=== PATIENT | male | born 1935 | race Caucasian/White ===

== ENCOUNTER → 2018-09-06 | Outpatient (CLI) | payer MEDICARE, OTHER ==
[~2018-09-06] MED LIST: ASPI81CH PO; ATOR20 PO; CHOL10002 PO; DOCSEN PO; HYDR1TAB94 PO; Hair, Skin & N1 EACH PO; IBUP400 PO; OLME20 PO; TAMS.4ER PO; TIMO.25OPS BOTHEYES; TRIHYD253A PO; VIT1CAPS12 PO
== END | disposition home or self-care (01) ==
LOC: LAB SHORT 15:50 → LAB 15:50
DX: N18.3 Chronic kidney disease, stage 3 (moderate) (principal); D63.1 Anemia in chronic kidney disease; N25.81 Secondary hyperparathyroidism of renal origin; E55.9 Vitamin D deficiency, unspecified; E78.00 Pure hypercholesterolemia, unspecified; R76.9 Abnormal immunological finding in serum, unspecified; R94.5 Abnormal results of liver function studies; R94.6 Abnormal results of thyroid function studies
CPT/HCPCS: 86335

== ENCOUNTER → 2018-09-11 | Outpatient (CLI) | payer MEDICARE, OTHER ==
[2018-09-11 10:41] LABS: Protein, Urine Quantitative 9.3 mg/dL (0.0-11.9)
[2018-09-11 10:42] LABS: Creatinine Urine 57.5 mg/dL (27.00-270.00)
== END | disposition home or self-care (01) ==
LOC: LAB SHORT 07:30 → LAB 07:30 → LAB FUT 09-06 15:55
PROVIDERS: Internal Medicine Nephrology
DX: N18.3 Chronic kidney disease, stage 3 (moderate) (principal); D63.1 Anemia in chronic kidney disease; N25.81 Secondary hyperparathyroidism of renal origin; E55.9 Vitamin D deficiency, unspecified; E78.00 Pure hypercholesterolemia, unspecified; R76.9 Abnormal immunological finding in serum, unspecified; R94.5 Abnormal results of liver function studies; R94.6 Abnormal results of thyroid function studies
CPT/HCPCS: 81050; 82570; 84156

== ENCOUNTER → 2019-03-11 | Outpatient (CLI) | payer MEDICARE, OTHER | END | disposition home or self-care (01) | LOC: LAB SHORT 10:56 → PLD 10:56 | DX: L82.1 Other seborrheic keratosis (principal) | CPT/HCPCS: 88305 ==

== ENCOUNTER 2019-06-05 08:49 | Day surgery (SDC) | payer MEDICARE, OTHER ==
[~2019-06-05] VITALS: Ht 182.9 cm; Wt 88.9 kg
[~2019-06-05 08:49] MED LIST changes: +AMLO10 PO; +DORZOPSO BOTHEYES; +METAMUCIL; +NEBI10 PO; +TORS10 PO; +VITAMIN D34000 UNIT PO
--- NOTE | 2019-06-05 09:31 | NUR ---
History, Chart, Medications and Allergies reviewed before start of procedure. Patient confirms NPO status and agrees with scheduled surgery. Pre-Op teaching done. Pt verbalizes understanding. Patient States Post-Procedure ride home has been arranged. Patient reports completing Chlorhexadine shower X2 prior to admission to hospital. Pre-Op teaching done. Pt verbalizes understanding. NO JEWELRY OR CONTACTS OR HEARING DEVICES PRESENT AT ADMIT. WILL PLACE DENTURES TOP AND BOTTOM WELL GLASSES IN RECOVERY ROOM.
--- NOTE | 2019-06-05 10:01 | NUR ---
PATIENT WITH UNMEASURED VOID AT ADMIT TO SDS.
--- NOTE | 2019-06-05 10:01 | NUR ---
TRACKER CARD EXPLAINED TO , PANCHO, OPPORTUNITY FOR QUESTIONS PROVIDED.
--- NOTE | 2019-06-05 10:17 | NUR ---
STRAWBERRY GROWER REOPRT COMPLETED AT BEDSIDE, WITH SOCORRO Goodwin RN.
--- NOTE | 2019-06-05 10:20 | NUR ---
PER DR LEE OK TO LEAVE DENTURES IN PLACE. GLASSES TO PACU.
--- NOTE | 2019-06-05 13:08 | NUR ---
"DAY SURGERY RN | DISCHARGE VSS. A/O. DENIES PAIN AND NAUSEA. DISCHARGE INSTRUCTIONS GIVEN TO PATIENT. RX GIVEN BY PRE-OP RN TO FAMILY. DENIES FURTHER QUESTIONS. STEADY ON FEET. TOLERATING PO FLUIDS AND FOOD. NO ISSUES IN STEPDOWN. TAKEN IN WHEELCHAIR TO FRONT ENTRANCE BY VOLUNTEER. IS RIDE HOME."
== END 2019-06-05 23:14 | disposition home or self-care (01) ==
LOC: ORSCMMR 08:49 → ORD 10:15 → ORSCMMR 23:14
PROVIDERS: Surgery
PROC: 0YU50JZ Supplement Right Inguinal Region with Synthetic Substitute, Open Approach (ICD-10-PCS; principal; 2019-06-05 10:15)
DX: K40.90 Unilateral inguinal hernia, without obstruction or gangrene, not specified as recurrent (principal); I10 Essential (primary) hypertension; Z87.891 Personal history of nicotine dependence; Z79.899 Other long term (current) drug therapy
CPT/HCPCS: C1781; J0690; J2250; J3010; J7120

== ENCOUNTER → 2021-10-25 | Outpatient (CLI) | payer MEDICARE, OTHER ==
[2021-10-29 12:34] LABS: Stool Occult Bld Immuno 1 Negative (NEGATIVE)
== END | disposition home or self-care (01) ==
LOC: LAB SHORT 15:30
PROVIDERS: Hospitalist
DX: Z12.11 Encounter for screening for malignant neoplasm of colon (principal)
CPT/HCPCS: G0328

== ENCOUNTER → 2024-04-21 | Outpatient (CLI) | payer MEDICARE, OTHER | END | disposition home or self-care (01) | LOC: LAB 08:44 → LAB SHORT 08:44 | DX: R05.9 Cough, unspecified (principal) | CPT/HCPCS: 87070; 87205 ==

== ENCOUNTER 2024-09-26 03:37 | Day surgery (SDC) | payer MEDICARE, OTHER ==
[2024-09-26 09:51] VITALS: BP 136/58
== END 2024-09-26 10:29 | disposition home or self-care (01) ==
LOC: ATC 03:37
DX: R33.9 Retention of urine, unspecified (principal); E78.5 Hyperlipidemia, unspecified; I73.9 Peripheral vascular disease, unspecified; G62.9 Polyneuropathy, unspecified; I12.9 Hypertensive chronic kidney disease with stage 1 through stage 4 chronic kidney disease, or unspecified chronic kidney disease; N18.32 Chronic kidney disease, stage 3b; Z88.8 Allergy status to other drugs, medicaments and biological substances
CPT/HCPCS: 51798